=== PATIENT | female | born 1980 | race African-American/Black ===

== ENCOUNTER 2016-12-17 18:14 | Emergency (ER) | payer SELFPAY ==
[~2016-12-17 18:14] MED LIST: METH4TAB2 PO; PROM25TA10 PO; SUMA50TA3 PO
[2016-12-17] MEDS ORDERED: LISINOPRIL 10 MG TABLET PO ONE (19:00)
[2016-12-17] MEDS ORDERED: amLODIPine BESYLATE 5 MG TABLET PO ONE (19:00)
[2016-12-17] MEDS ORDERED: hydroCHLOROthiazide 12.5 MG CAPSULE PO ONE (19:00)
[2016-12-17] MEDS ORDERED: CETIRIZINE HCL 10 MG TABLET. PO STA (19:01)
--- NOTE | 2016-12-17 19:01 | PHYS DOC ---
Past Medical History Past Medical History: Anxiety, High Cholesterol, Hypertension, Migraines Past Surgical History: , Tubal ligation Alcohol Use: None Drug Use: None Adult General Chief Complaint Chief Complaint: SKIN RASH/ABSCESS HPI HPI Patient is a 36 year old female with a history of high cholesterol, hypertension, anxiety who presents today with a pruritic rash on her neck that began yesterday. Patient denies any known cause for the rash. Review of Systems Review of Systems Constitutional: Denies fever or chills [] Eyes: Denies change in visual acuity, redness, or eye pain [] HENT: Denies nasal congestion or sore throat [] Respiratory: Denies cough or shortness of breath [] Cardiovascular: No additional information not addressed in HPI [] GI: Denies abdominal pain, nausea, vomiting, bloody stools or diarrhea [] : Denies dysuria or hematuria [] Musculoskeletal: Denies back pain or joint pain [] Integument: rash Neurologic: Denies headache, focal weakness or sensory changes [] Endocrine: Denies polyuria or polydipsia [] Current Medications Current Medications Current Medications Medications (Trade) Dose Ordered Sig/Loretta Start Time Stop Time Status Last Admin Dose Admin Amlodipine Besylate (Norvasc) 10 mg 1X ONCE 12/17/16 19:00 12/17/16 19:01 DC Cetirizine HCl (ZyrTEC) 10 mg 1X STAT 12/17/16 19:01 12/17/16 19:02 DC Famotidine (Pepcid) 20 mg 1X ONCE 12/17/16 19:15 12/17/16 19:16 Hydrochlorothiazide (Microzide) 25 mg 1X ONCE 12/17/16 19:00 12/17/16 19:01 DC Lisinopril (Prinivil) 40 mg 1X ONCE 12/17/16 19:00 12/17/16 19:01 DC Prednisone (Prednisone) 60 mg 1X ONCE 12/17/16 19:15 12/17/16 19:16 Allergies Allergies Allergies Coded Allergies Type Severity Reaction Last Updated Verified Penicillins Allergy Intermediate 12/06/13 No Physical Exam Physical Exam Constitutional: Well developed, well nourished, no acute distress, non-toxic appearance. [] HENT: Normocephalic, atraumatic, bilateral external ears normal, oropharynx moist, no oral exudates, nose normal. [] Eyes: PERRLA, EOMI, conjunctiva normal, no discharge. [] Neck: Normal range of motion, no tenderness, supple, no stridor. [] Cardiovascular:Heart rate regular rhythm, no murmur [] Lungs & Thorax: Bilateral breath sounds clear to auscultation [] Abdomen: Bowel sounds normal, soft, no tenderness, no masses, no pulsatile masses. [] Skin: Patient has mild amount of erythematous papular rash on her neck. Back: No tenderness, no CVA tenderness. [] Extremities: No tenderness, no cyanosis, no clubbing, ROM intact, no edema. [] Neurologic: Alert and oriented X 3, normal motor function, normal sensory function, no focal deficits noted. [] Psychologic: Affect normal, judgement normal, mood normal. [] Current Patient Data Vital Signs Vital Signs Date Time Temp Pulse Resp B/P (MAP) Pulse Ox O2 Delivery O2 Flow Rate FiO2 12/17/16 18:27 98.5 60 18 100 Room Air 98.5 EKG EKG [] Radiology/Procedures Radiology/Procedures [] Course & Med Decision Making Course & Med Decision Making Pertinent Labs and Imaging studies reviewed. (See chart for details) Patient has contact dermatitis rash on her neck from unknown cause. She was given prednisone, famotidine and Zyrtec and discharged with the same. Her blood pressure was 241/112 with a heart rate of 60, she states she forgot to take her blood pressure medicine this morning which includes Norvasc, lisinopril, HCTZ. She was given today's dose of her blood pressure medicine. BP will be rechecked prior to recheck. She was discharged with instructions to monitor her BP at home if still elevated to come to the ED if symptomatic otherwise follow-up with her PCP. Catherine Disclaimer Catherine Disclaimer This electronic medical record was generated, in whole or in part, using a voice recognition dictation system. Departure Departure Impression: Primary Impression: Contact dermatitis Additional Impression: Accelerated hypertension Disposition: 01 HOME, SELF-CARE Condition: STABLE Referrals: NO PCP (PCP) Follow-up with your doctor in 1-2 weeks Patient Instructions: Contact Dermatitis, [id number], Hypertension Additional Instructions: You were seen for contact dermatitis rash and hypertension. Take the prescribed medicine as ordered. Follow-up with your doctor in the course of next week. Your blood pressure was elevated at 241/112, try and take your blood pressure medicine as prescribed by your doctor. Scripts Cetirizine Hcl (ZYRTEC) 10 Mg Tablet 1 TAB PO DAILY, #30 TAB 2 Refills Prov: JASWINDER LUECRO APRN 12/17/16 Famotidine (FAMOTIDINE) 20 Mg Tablet 20 MG PO DAILY, #14 TAB Prov: JASWINDER LUCERO APRN 12/17/16 Prednisone (PREDNISONE) 10 Mg Tablet 10 MG PO UD for PREDNISONE TAPER, #39 TAB 0 Refills Take 3 tablets by mouth twice a day for 3 days, then take 2 tablets by mouth twice a day for 3 days, then take 1 tablet by mouth twice a day for 3 days, then take 1 tablet by mouth daily x 3 days, then stop. Prov: JASWINDER LUCERO APRN 12/17/16 Problem Qualifiers Primary Impression: Contact dermatitis Contact dermatitis type: unspecified Contact dermatitis trigger: unspecified trigger Qualified Codes: L25.9 - Unspecified contact dermatitis, unspecified cause JASWINDER LUCERO APRN Dec 17, 2016 19:01
[2016-12-17] MEDS ORDERED: CETI10TA22 PO (19:09)
[2016-12-17] MEDS ORDERED: PRED-220 PO (19:09)
[2016-12-17] MEDS ORDERED: FAMO20TA5 PO (19:09)
[2016-12-17] MEDS ORDERED: predniSONE 20 MG TABLET PO ONE (19:15)
[2016-12-17] MEDS ORDERED: FAMOTIDINE 20 MG TABLET. PO ONE (19:15)
[2016-12-17 19:16] VITALS: BP 237/117
== END 2016-12-17 19:25 | disposition home or self-care (01) ==
LOC: ER 18:14
DX: L25.9 Unspecified contact dermatitis, unspecified cause (principal); I10 Essential (primary) hypertension; F41.9 Anxiety disorder, unspecified; E78.00 Pure hypercholesterolemia, unspecified; G43.909 Migraine, unspecified, not intractable, without status migrainosus; Z88.0 Allergy status to penicillin
CPT/HCPCS: 99284; J7512

== ENCOUNTER 2017-01-16 19:20 | Emergency (ER) | payer OTHER ==
[~2017-01-16 19:20] MED LIST changes: +CETI10TA22 PO; +FAMO20TA5 PO; +PRED-220 PO
--- NOTE | 2017-01-16 19:53 | PHYS DOC ---
Past Medical History Past Medical History: Anxiety, High Cholesterol, Hypertension, Migraines Past Surgical History: , Tubal ligation Alcohol Use: None Drug Use: None Adult General Chief Complaint Chief Complaint: LOWER BACK PAIN OR INJURY HPI HPI Patient is a 36 year old -[place] female who presents with. 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 He states over the last 2-3 days and has intensified and last night she took Advil and really didn't help that much. She denies any numbness or weakness in her legs or urinary incontinence. She denies any trauma to her back, or dysuria. She states her pain is made worse when she twists and turns and she points across her entire lumbar area from side to side is where her pain is. Review of Systems Review of Systems Constitutional: Denies fever or chills [] Eyes: Denies change in visual acuity, redness, or eye pain [] HENT: Denies nasal congestion or sore throat [] Respiratory: Denies cough or shortness of breath [] Cardiovascular: No additional information not addressed in HPI [] GI: Denies abdominal pain, nausea, vomiting, bloody stools or diarrhea [] : Denies dysuria or hematuria [] Musculoskeletal: Denies joint pain, positive for back pain[] Integument: Denies rash or skin lesions [] Neurologic: Denies headache, focal weakness or sensory changes [] Endocrine: Denies polyuria or polydipsia [] Allergies Allergies Allergies Coded Allergies Type Severity Reaction Last Updated Verified Penicillins Allergy Intermediate 12/06/13 No Physical Exam Physical Exam Constitutional: Well developed, well nourished, no acute distress, non-toxic appearance. [] HENT: Normocephalic, atraumatic, bilateral external ears normal, oropharynx moist, no oral exudates, nose normal. [] Eyes: PERRLA, EOMI, conjunctiva normal, no discharge. [] Neck: Normal range of motion, no tenderness, supple, no stridor. [] Cardiovascular:Heart rate regular rhythm, no murmur [] Lungs & Thorax: Bilateral breath sounds clear to auscultation [] Abdomen: Bowel sounds normal, soft, no tenderness, no masses, no pulsatile masses. [] Skin: Warm, dry, no erythema, no rash. [] Back: No step-offs noted midline, mild tenderness palpation diffusely through the entire lumbar back area from side to side, no CVA tenderness. [] Extremities: No tenderness, no cyanosis, no clubbing, ROM intact, no edema. [] Neurologic: Alert and oriented X 3, normal motor function, normal sensory function, no focal deficits noted. [] Psychologic: Affect normal, judgement normal, mood normal. [] EKG EKG [] Radiology/Procedures Radiology/Procedures [] Impressions: Muscle skeletal back pain Course & Med Decision Making Course & Med Decision Making Pertinent Labs and Imaging studies reviewed. (See chart for details) I suspect her discomfort from overuse, we'll encourage 400 mg Advil every 8 hours for the next 3-5 days she can take Flexeril as needed for muscle aches. She is encouraged to rest, use ice or heat on her back. She is instructed to the flexural can make her sleepy and not to drive or taking it. Dragon Disclaimer Dragon Disclaimer This electronic medical record was generated, in whole or in part, using a voice recognition dictation system. Departure Departure Impression: Primary Impression: Back pain Condition: STABLE Referrals: NO PCP (PCP) Patient Instructions: Muscle Strain Additional Instructions: You likely have pain since her overusing her back. You should rest for the next few days. He can use Advil 400 mg every 8 hours for next 3-5 days. Please don't take it longer than this at this high dose. He also take Flexeril which is a muscle relaxant. You take 10 mg every 8 hours. If it makes you sleepy don't take it except one tablet before you go to bed. Please don't drive or taking this medicine as it can impair judgment and make you sleepy. If you develop high fevers, urinary incontinence, weakness or numbness in her legs, or other concerns please return back to emergency department. You will need to follow-up with primary care physician within the next 3-5 days. Scripts Cyclobenzaprine Hcl (CYCLOBENZAPRINE HCL) 10 Mg Tablet 1 TAB PO TID, #30 TAB Prov: ENMANUEL ZAVALA MD 01/16/17 Problem Qualifiers Primary Impression: Back pain Back pain location: low back pain Chronicity: acute Back pain laterality: bilateral Sciatica presence: without sciatica Qualified Codes: M54.5 - Low back pain ENMANUEL ZAVALA MD Jan 16, 2017 19:53
[2017-01-16 19:58] VITALS: BP 146/97
[2017-01-16] MEDS ORDERED: CYCL10TA2 PO (20:09)
== END 2017-01-16 20:24 | disposition home or self-care (01) ==
LOC: ER 20:10
DX: M54.5 Low back pain (principal); I10 Essential (primary) hypertension; E78.00 Pure hypercholesterolemia, unspecified; G43.909 Migraine, unspecified, not intractable, without status migrainosus; Z98.890 Other specified postprocedural states; Z98.51 Tubal ligation status; Z88.0 Allergy status to penicillin
CPT/HCPCS: 99283

== ENCOUNTER 2017-03-29 18:29 | Emergency (ER) | payer OTHER ==
[~2017-03-29] VITALS: Ht 167.6 cm; Wt 104.3 kg
[~2017-03-29 18:29] MED LIST changes: +CYCL10TA2 PO
--- NOTE | 2017-03-29 19:24 | PHYS DOC ---
Past Medical History Past Medical History: Anxiety, High Cholesterol, Hypertension, Migraines Past Surgical History: , Tubal ligation Additional Information: 0.5 PPD Alcohol Use: None Drug Use: None Adult General Chief Complaint Chief Complaint: CHEST PAIN HPI HPI Patient is a 36 year old female who presents with several hour history of cough palpitations and mild shortness of breath and mild headache. Has not taken her blood pressure meds in over 2 weeks due to social stressors. She reports history of hypertension and anxiety but denies diabetes. Family history coronary artery disease. Reports normal urinary output. The pressure noted to be 207/110. Primary care physician is with [facility] Review of Systems Review of Systems Constitutional: Denies fever or chills [] Eyes: Denies change in visual acuity, redness, or eye pain [] HENT: Denies nasal congestion or sore throat [] Respiratory: Denies cough or shortness of breath [] Cardiovascular: No additional information not addressed in HPI [] GI: Denies abdominal pain, nausea, vomiting, bloody stools or diarrhea [] : Denies dysuria or hematuria [] Musculoskeletal: Denies back pain or joint pain [] Integument: Denies rash or skin lesions [] Neurologic: Denies headache, focal weakness or sensory changes [] Endocrine: Denies polyuria or polydipsia [] All other systems were reviewed and found to be within normal limits, except as documented in this note. Current Medications Current Medications Current Medications Medications (Trade) Dose Ordered Sig/Loretta Start Time Stop Time Status Last Admin Dose Admin Labetalol HCl (Normodyne) 20 mg 1X ONCE 03/29/17 20:45 03/29/17 20:46 DC 03/29/17 20:39 20 MG Allergies Allergies Allergies Coded Allergies Type Severity Reaction Last Updated Verified Penicillins Allergy Intermediate 12/06/13 No Physical Exam Physical Exam Constitutional: Well developed, well nourished, no acute distress, non-toxic appearance. [] HENT: Normocephalic, atraumatic, bilateral external ears normal, oropharynx moist, no oral exudates, nose normal. [] Eyes: PERRLA, EOMI, conjunctiva normal, no discharge. [] Neck: Normal range of motion, no tenderness, supple, no stridor. [] Cardiovascular:Heart rate regular rhythm, no murmur [] Lungs & Thorax: Bilateral breath sounds clear to auscultation [] Abdomen: Bowel sounds normal, soft, no tenderness, no masses, no pulsatile masses. [] Skin: Warm, dry, no erythema, no rash. [] Back: No tenderness, no CVA tenderness. [] Extremities: No tenderness, no cyanosis, no clubbing, ROM intact, no edema. [] Neurologic: Alert and oriented X 3, normal motor function, normal sensory function, no focal deficits noted. [] Psychologic: Affect normal, judgement normal, mood normal. [] Current Patient Data Vital Signs Vital Signs Date Time Temp Pulse Resp B/P (MAP) Pulse Ox O2 Delivery O2 Flow Rate FiO2 03/29/17 20:39 63 179/86 03/29/17 20:16 98 Room Air 03/29/17 18:47 98.0 18 98.0 Lab Values Laboratory Tests Test 03/29/17 18:50 White Blood Count 11.8 x10^3/uL (4.0-11.0) H Red Blood Count 4.45 x10^6/uL (3.50-5.40) Hemoglobin 12.4 g/dL (12.0-15.5) Hematocrit 37.4 % (36.0-47.0) Mean Corpuscular Volume 84 fL (79-100) Mean Corpuscular Hemoglobin 28 pg (25-35) Mean Corpuscular Hemoglobin Concent 33 g/dL (31-37) Red Cell Distribution Width 14.3 % (11.5-14.5) Platelet Count 439 x10^3/uL (140-400) H Neutrophils (%) (Auto) 56 % (31-73) Lymphocytes (%) (Auto) 34 % (24-48) Monocytes (%) (Auto) 6 % (0-9) Eosinophils (%) (Auto) 4 % (0-3) H Basophils (%) (Auto) 0 % (0-3) Neutrophils # (Auto) 6.6 x10^3uL (1.8-7.7) Lymphocytes # (Auto) 4.0 x10^3/uL (1.0-4.8) Monocytes # (Auto) 0.7 x10^3/uL (0.0-1.1) Eosinophils # (Auto) 0.5 x10^3/uL (0.0-0.7) Basophils # (Auto) 0.0 x10^3/uL (0.0-0.2) D-Dimer (Tawnya) 0.27 ug/mlFEU (0.00-0.50) Sodium Level 139 mmol/L (136-145) Potassium Level 3.5 mmol/L (3.5-5.1) Chloride Level 103 mmol/L (98-107) Carbon Dioxide Level 27 mmol/L (21-32) Anion Gap 9 (6-14) Blood Urea Nitrogen 14 mg/dL (7-20) Creatinine 1.1 mg/dL (0.6-1.0) H Estimated GFR (Cockcroft-Gault) 68.0 BUN/Creatinine Ratio 13 (6-20) Glucose Level 99 mg/dL (70-99) Calcium Level 9.4 mg/dL (8.5-10.1) Total Bilirubin 0.4 mg/dL (0.2-1.0) Aspartate Amino Transferase (AST) 22 U/L (15-37) Alanine Aminotransferase (ALT) 18 U/L (14-59) Alkaline Phosphatase 102 U/L (46-116) Troponin I Quantitative < 0.017 ng/mL (0.000-0.055) Total Protein 8.8 g/dL (6.4-8.2) H Albumin 3.6 g/dL (3.4-5.0) Albumin/Globulin Ratio 0.7 (1.0-1.7) L Laboratory Tests 03/29/17 18:50 Laboratory Tests 03/29/17 18:50 EKG EKG eKG normal sinus rhythm rate of 73 no STEMI QTC 429 my interpretation[] Radiology/Procedures Radiology/Procedures Chest x-ray[ no acute cardiopulmonary process seen my interpretation and review of the images] Course & Med Decision Making Course & Med Decision Making Pertinent Labs and Imaging studies reviewed. (See chart for details) [To check labs including troponin and d-dimer EKG and chest x-ray and reexam] Labs EKG chest x-ray d-dimer troponin were unremarkable patient stable for dismissal and outpatient treatment. Re-Examination was unremarkable. Blood pressure on reexamination 150/90 Dragon Disclaimer Dragon Disclaimer This electronic medical record was generated, in whole or in part, using a voice recognition dictation system. Departure Departure Impression: Primary Impression: Dyspnea Additional Impressions: Hypertensive urgency Palpitations Disposition: HOME, SELF-CARE Condition: IMPROVED Referrals: NO PCP (PCP) Problem Qualifiers JOVANNA NICHOLS MD Mar 29, 2017 19:24
[2017-03-29 19:28] LABS: BASO % 0 % (0-3); EOS % 4 % (0-3); HEMATOCRIT 37.4 % (36.0-47.0); HEMOGLOBIN 12.4 g/dL (12.0-15.5); LYMPH % 34 % (24-48); MEAN CORPUSCULAR HEMOGLOBIN 28 pg (25-35); MEAN CORPUSCULAR HGB CONC 33 g/dL (31-37); MEAN CORPUSCULAR VOLUME 84 fL (79-100); MONO % 6 % (0-9); NEUT % 56 % (31-73); PLATELET COUNT 439 x10^3/uL (140-400); RED BLOOD COUNT 4.45 x10^6/uL (3.50-5.40); RED CELL DISTRIBUTION WIDTH 14.3 % (11.5-14.5); WHITE BLOOD COUNT 11.8 x10^3/uL (4.0-11.0)
[2017-03-29 19:51] LABS: CALCIUM 9.4 mg/dL (8.5-10.1); CREATININE 1.1 mg/dL (0.6-1.0); POTASSIUM 3.5 mmol/L (3.5-5.1)
[2017-03-29 19:58] LABS: ALBUMIN 3.6 g/dL (3.4-5.0); ALBUMIN/GLOBULIN RATIO 0.7 (1.0-1.7); TOTAL BILIRUBIN 0.4 mg/dL (0.2-1.0); TOTAL PROTEIN 8.8 g/dL (6.4-8.2)
[2017-03-29] MEDS ORDERED: LABETALOL 20 MG/4 ML DISP.SYRIN. IVP ONE (20:45)
[2017-03-29 21:16] VITALS: BP 155/75
--- NOTE | 2017-03-30 07:54 | RAD ---
Portable chest, 03/29/2017: History: Cough Comparison is made to a study from 02/28/2013. The left ventricle is mildly prominent. The pulmonary vascularity is normal. No pulmonary infiltrates are seen. There is no evidence of pleural fluid. IMPRESSION: No acute cardiopulmonary abnormality is detected.
--- NOTE | 2017-03-30 11:56 | EKG ---
[facility] [address] [place] [address] Test Date: 2017-03-29 Test Time: 18:35:37 Pat Name: JENNIFER LATIF Department: Room: Gender: F Typing Section Chief: : 1980 Requested By: JOVANNA NICHOLS Order Number: [id number] Reading MD: Glen Presley Measurements Intervals [place] Rate: 73 P: 53 NV: 158 QRS: 37 QRSD: 94 T: 20 QT: 400 QTc: 444 Interpretive Statements SINUS RHYTHM POSSIBLE LEFT ATRIAL ABNORMALITY NONSPECIFIC ST-T WAVE CHANGES. POSSIBLY ABNORMAL ECG RI6.01 Compared to ECG 02/28/2013 06:02:33 No significant changes Electronically Signed On 03-30-2017 16:01:50 CERTIFIED SUBSTANCE ABUSE COUNSELOR by Glen Presley
--- NOTE | 2017-03-30 12:22 | EKG ---
[facility] [address] [place] [address] Test Date: 2017-03-29 Test Time: 18:36:50 Pat Name: JENNIFER LATIF Department: Room: Gender: F Wildlife Veterinarian: : 1980 Requested By: JOVANNA NICHOLS Order Number: [id number] Reading MD: Glen Presley Measurements Intervals [place] Rate: 73 P: 49 [place]: 156 QRS: 22 QRSD: 92 T: 16 QT: 386 QTc: 429 Interpretive Statements SINUS RHYTHM QRS(T) CONTOUR ABNORMALITY NONSPECIFIC ST-T WAVE CHANGES. POSSIBLY ABNORMAL ECG RI6.01 Compared to ECG 02/28/2013 06:02:33 Atrial abnormality no longer present Electronically Signed On 03-30-2017 16:02:06 MERRY GO ROUND OPERATOR by Glen Presley
== END 2017-03-29 21:18 | disposition home or self-care (01) ==
LOC: ER 18:29
DX: R06.00 Dyspnea, unspecified (principal); I16.0 Hypertensive urgency; R00.2 Palpitations; E78.00 Pure hypercholesterolemia, unspecified; G43.909 Migraine, unspecified, not intractable, without status migrainosus; F17.200 Nicotine dependence, unspecified, uncomplicated; Z98.51 Tubal ligation status; Z98.890 Other specified postprocedural states; Z88.0 Allergy status to penicillin
CPT/HCPCS: 36415; 71010; 80053; 84484; 85025; 85379; 93005; 96374; 99285; J3490

== ENCOUNTER 2017-10-28 00:40 | Emergency (ER) | payer SELFPAY, OTHER | END 2017-10-28 01:10 | disposition left against medical advice (07) | LOC: ER 01:10 | DX: F41.9 Anxiety disorder, unspecified (principal); R51 Headache; Z53.21 Procedure and treatment not carried out due to patient leaving prior to being seen by health care provider ==

== ENCOUNTER 2018-05-11 11:33 | Emergency (ER) | payer SELFPAY ==
[~2018-05-11] VITALS: Ht 167.6 cm; Wt 104.3 kg
[2018-05-11 11:49] VITALS: BP 198/110
--- NOTE | 2018-05-11 12:25 | PHYS DOC ---
Past Medical History Past Medical History: Anxiety, High Cholesterol, Hypertension, Migraines Past Surgical History: , Tubal ligation Alcohol Use: None Drug Use: None Adult General Chief Complaint Chief Complaint: COUGH HPI HPI 37-year-old female presents to ER with complaints of flulike symptoms which started 2 days ago. Patient reports her kids were diagnosed with the flu today and they have similar symptoms as hers. Patient also has complaints of N/V/D with 3-4 episodes of V and multiple D episodes. Patient states she took TheraFlu last night denies any xquw-esr-gghhymt medications today. Patient's LMP was last week. Patient reports she's had generalized body aches and fatigue denies lethargy, urinary symptoms, chest pain, or abdominal pain. Patient is a daily smoker. Review of Systems Review of Systems Constitutional: No chills and generalized body aches/fatigue Eyes: Denies change in visual acuity, redness, or eye pain [] HENT: Denies nasal congestion or sore throat [] Respiratory: Denies shortness of breath. Reports productive cough Cardiovascular: No additional information not addressed in HPI [] GI: Reports nausea, vomiting, or diarrhea [] : Denies dysuria or hematuria [] Musculoskeletal: Reports body aches denies swelling Integument: Denies rash or skin lesions [] Neurologic: Denies headache, focal weakness or sensory changes [] All other systems were reviewed and found to be within normal limits, except as documented in this note. Current Medications Current Medications Current Medications Medications (Trade) Dose Ordered Sig/Loretta Start Time Stop Time Status Last Admin Dose Admin Acetaminophen (Tylenol) 1,000 mg 1X ONCE 05/11/18 12:30 05/11/18 12:31 DC 05/11/18 12:42 1,000 MG Albuterol/ Ipratropium (Duoneb) 3 ml 1X ONCE 05/11/18 12:30 05/11/18 12:31 DC 05/11/18 12:52 3 ML Ondansetron HCl (Zofran Odt) 4 mg 1X ONCE 05/11/18 12:30 05/11/18 12:31 DC 05/11/18 12:41 4 MG Prednisone (Prednisone) 50 mg 1X ONCE 05/11/18 12:30 05/11/18 12:31 DC 05/11/18 12:42 50 MG Allergies Allergies Allergies Coded Allergies Type Severity Reaction Last Updated Verified Penicillins Allergy Intermediate 12/06/13 No Physical Exam Physical Exam Constitutional: Well developed, well nourished, no acute distress, non-toxic appearance. Fatigued appearance. Steady gait HENT: Normocephalic, atraumatic, , oropharynx moist, no oral exudates, nose normal. [] Eyes: Pupils equal, conjunctiva normal, no discharge. [] Neck: Normal range of motion, no tenderness, supple, no stridor. [] Cardiovascular: Heart rate regular rhythm, no murmur [] Lungs & Thorax: Abdomen: Bowel sounds normal, soft, no tenderness, no masses, no pulsatile masses. [] Skin: Warm, dry, no erythema, no rash. [] Back: No tenderness, no CVA tenderness. [] Extremities: No tenderness, no cyanosis, no clubbing, ROM intact, no edema. [] Neurologic: Alert and oriented X 3, normal motor function, normal sensory function, no focal deficits noted. [] Psychologic: Affect normal, judgement normal, mood normal. [] Current Patient Data Vital Signs Vital Signs Date Time Temp Pulse Resp B/P (MAP) Pulse Ox O2 Delivery O2 Flow Rate FiO2 05/11/18 12:53 Room Air 05/11/18 11:49 99.8 79 18 198/110 (139) 97 99.8 Lab Values Laboratory Tests Test 05/11/18 12:14 Influenza Type A Antigen Negative (NEGATIVE) Influenza Type B Antigen Negative (NEGATIVE) EKG EKG [] Radiology/Procedures Radiology/Procedures [] Course & Med Decision Making Course & Med Decision Making Pertinent Labs and Imaging studies reviewed. (See chart for details) 1425: There was a delay in getting the chest x-ray results Aliyah with radiology called stating she had spoke with Dr. Justice radiologist and his report is chest x-ray with no acute findings. She reports her symptoms have improved following DuoNeb treatments and dose of medication while in the ER. Discussed with negative flu and chest x-ray plans were for home discharge with information on viral symptoms. Patient has been drinking water after dose of Zofran ODT denying any nausea or having any vomiting episodes while in the ER. Will provide patient with prescription for prednisone, albuterol inhaler, and a Rx for Doxycycline which she will wait for 48 hrs to see if symptoms worsen- as she is a smoker. Looking cessation was discussed. Patient encouraged to increase fluid intake. If symptoms persist or with concerns patient to follow- up with primary care physician. Discharge instructions discussed and education provided on signs and symptoms to return to ER. She remains nontoxic in appearance and in no visible distress at time of discharge discussion. Dragon Disclaimer Dragon Disclaimer This electronic medical record was generated, in whole or in part, using a voice recognition dictation system. Departure Departure Impression: Primary Impression: Cough Additional Impressions: Flu-like symptoms Viral syndrome Disposition: HOME, SELF-CARE Condition: STABLE Referrals: NO PCP (PCP) Patient Instructions: Cough, Adult, Smoking Cessation, Viral Syndrome Additional Instructions: As discussed drink plenty of fluids. Avoid smoking. If symptoms persist follow-up with primary care physician in 5-7 days for reevaluation sooner with any concerns. You are being provided with a prescription for doxycycline which is an antibiotic if symptoms worsen in the next 48 hours start the prescription. If symptoms improve you will not need to start this. Scripts Doxycycline Hyclate (DOXYCYCLINE HYCLATE) 100 Mg Tablet 1 TAB PO BID, #14 TAB 0 Refills Prov: BLAISE TAYLOR APRN 05/11/18 Albuterol Sulfate (Proair Hfa) 8.5 Gm Hfa.aer.ad 1 PUFF INH PRN Q6HRS PRN for COUGH, #1 INHALER 0 Refills Prov: BLAISE TAYLOR APRN 05/11/18 Prednisone (PREDNISONE) 50 Mg Tablet 50 MG PO DAILY, #4 TAB 0 Refills Start on 05/12/18 Prov: BLAISE TAYLOR APRN 05/11/18 Problem Qualifiers BLAISE TAYLOR APRN May 11, 2018 12:25
[2018-05-11] MEDS ORDERED: IPRATRPIUM/ALBUTEROL 0.5/2.5MG 3 ML NEBU. NEB ONE (12:30)
[2018-05-11] MEDS ORDERED: predniSONE 10 MG TABLET PO ONE (12:30)
[2018-05-11] MEDS ORDERED: ONDANSETRON ODT 4 MG TAB.RAPDIS. PO ONE (12:30)
[2018-05-11] MEDS ORDERED: ACETAMINOPHEN 500 MG TABLET PO ONE (12:30)
[2018-05-11 12:42] LABS: INFLUENZA A PATIENT NEGATIVE (NEGATIVE); INFLUENZA B PATIENT NEGATIVE (NEGATIVE)
[2018-05-11] MEDS ORDERED: DOXY100T PO (14:47)
[2018-05-11] MEDS ORDERED: PRED50TA PO (14:47)
[2018-05-11] MEDS ORDERED: ALBU2.5V8 INH (14:47)
--- NOTE | 2018-05-11 15:25 | RAD ---
Chest radiograph 05/11/2018 12:32 PM INDICATION: Cough COMPARISON: March 29, 2017 TECHNIQUE: Frontal and lateral views of the chest are provided. FINDINGS: The cardiomediastinal silhouette is within normal limits. There are no pleural effusions. There is no pulmonary vascular congestion. There is no pneumothorax. The lungs are clear. No significant osseous abnormality is identified. IMPRESSION: No acute cardiopulmonary process. Electronically signed by: Yesica Singleton MD (05/11/2018 1:36 PM) [id number]
== END 2018-05-11 15:08 | disposition home or self-care (01) ==
LOC: ER 11:33
DX: J11.1 Influenza due to unidentified influenza virus with other respiratory manifestations (principal); B34.9 Viral infection, unspecified; F41.9 Anxiety disorder, unspecified; E78.00 Pure hypercholesterolemia, unspecified; I10 Essential (primary) hypertension; G43.909 Migraine, unspecified, not intractable, without status migrainosus; Z88.0 Allergy status to penicillin
CPT/HCPCS: 71046; 87804; 94640; 99284; J7512; J7620; Q0162

== ENCOUNTER 2019-03-01 13:51 | Emergency (ER) | payer OTHER ==
[~2019-03-01] VITALS: Ht 167.6 cm; Wt 104.3 kg
[~2019-03-01 13:51] MED LIST changes: +ALBU2.5V8 INH; +DOXY100T PO; +PRED50TA PO
[2019-03-01 14:27] VITALS: BP 262/127
[2019-03-01] MEDS ORDERED: BUTALB/APAP/CAFEIN 50/325/40MG TABLET. PO PRN (15:00)
[2019-03-01] MEDS ORDERED: FLUC150T PO (15:17)
--- NOTE | 2019-03-01 15:23 | PHYS DOC ---
Past Medical History Past Medical History: Anxiety, High Cholesterol, Hypertension, Migraines Past Surgical History: , Tubal ligation Alcohol Use: None Drug Use: None Adult General Chief Complaint Chief Complaint: SKIN RASH/ABSCESS HPI HPI Patient is a 38 year old who presents to the ER for multiple complaints. The patient states she's been having a rash for 2 weeks in her pelvic area. Also states she's been having headache for several days. She states that she gets migraines and her pain is 9/10 and throbbing. Review of Systems Review of Systems Constitutional: Denies fever or chills [] Eyes: Denies change in visual acuity, redness, or eye pain [] HENT: Denies nasal congestion or sore throat [] Respiratory: Denies cough or shortness of breath [] Cardiovascular: No additional information not addressed in HPI [] GI: Denies abdominal pain, nausea, vomiting, bloody stools or diarrhea [] : Denies dysuria or hematuria [] Musculoskeletal: Denies back pain or joint pain [] Integument: Reports rash in pelvic area. Neurologic: Reports headache, Denies focal weakness or sensory changes [] Endocrine: Denies polyuria or polydipsia [] Complete systems were reviewed and found to be within normal limits, except as documented in this note. Current Medications Current Medications Current Medications Medications (Trade) Dose Ordered Sig/Loretta Start Time Stop Time Status Last Admin Dose Admin Acetaminophen/ Butalbital/ Caffeine (Fioricet) 1 tab PRN Q6HRS PRN 03/01/19 15:00 Allergies Allergies Allergies Coded Allergies Type Severity Reaction Last Updated Verified Penicillins Allergy Intermediate 12/06/13 No Physical Exam Physical Exam Constitutional: Well developed, well nourished, no acute distress, non-toxic appearance. [] HENT: Normocephalic, atraumatic, bilateral external ears normal, oropharynx moist, no oral exudates, nose normal. [] Eyes: PERRLA, EOMI, conjunctiva normal, no discharge. [] Neck: Normal range of motion, no tenderness, supple, no stridor. [] Skin: Warm, dry, no erythema, no rash. [] Back: No tenderness, no CVA tenderness. [] Extremities: No tenderness, no cyanosis, no clubbing, ROM intact, no edema. [] Neurologic: Alert and oriented X 3, normal motor function, normal sensory function, no focal deficits noted. [] Psychologic: Affect normal, judgement normal, mood normal. [] Pelvic: Superficial cut in left crease, Right crease has erythema. Current Patient Data Vital Signs Vital Signs Date Time Temp Pulse Resp B/P (MAP) Pulse Ox O2 Delivery O2 Flow Rate FiO2 03/01/19 14:27 98.4 61 16 262/127 (172) 96 Room Air 98.4 EKG EKG [] Radiology/Procedures Radiology/Procedures [] Course & Med Decision Making Course & Med Decision Making Pertinent Labs and Imaging studies reviewed. (See chart for details) Will give Fioricet and then will place on Fluconazole. Dragon Disclaimer Dragon Disclaimer This electronic medical record was generated, in whole or in part, using a voice recognition dictation system. Departure Departure Impression: Primary Impression: Yeast dermatitis Additional Impression: Headache Disposition: HOME, SELF-CARE Condition: STABLE Referrals: NO PCP (PCP) Patient Instructions: General Headache Without Cause, Yeast Infection of the Skin, [id number] Additional Instructions: Thank you for visiting [facility]. We appreciate you trusting us with your care. If any additional problems come up don't hesitate to return to visit us. Please follow up with your primary care provider so they can plan additional care if needed and know about the problem that you had. If symptoms worsen come back to the Emergency Department. Any concerning symptoms that start such as chest pain, shortness of air, weakness or numbness on one side of the body, running high fevers or any other concerning symptoms return to the ER. Please fill your medications at any pharmacy and follow the prescription instructions. You can also get over the counter antifungal cream for area. Scripts Fluconazole (DIFLUCAN) 150 Mg Tablet 1 TAB PO ONCE, #1 TAB Prov: SANJUANA GREENBERG APRN 03/01/19 Problem Qualifiers Additional Impression: Headache Headache type: unspecified Headache chronicity pattern: unspecified pattern SANJUANA GREENBERG APRN Mar 01, 2019 15:23
== END 2019-03-01 15:39 | disposition home or self-care (01) ==
LOC: ER 13:51
DX: B37.2 Candidiasis of skin and nail (principal); G43.909 Migraine, unspecified, not intractable, without status migrainosus; F41.9 Anxiety disorder, unspecified; E78.00 Pure hypercholesterolemia, unspecified; I10 Essential (primary) hypertension; Z98.890 Other specified postprocedural states; Z98.51 Tubal ligation status; Z88.0 Allergy status to penicillin
CPT/HCPCS: 99283

== ENCOUNTER → 2020-01-23 | Outpatient (CLI) | payer MEDICAID, OTHER ==
[~2020-01-23] MED LIST changes: -CETI10TA22 PO; +CETI10TA74 PO; +CONTRAST GIVEN. MC PRN; +FLUC150T PO; +IOHEXOL 350 MG/ML 100 ML VIAL. IV ONE
--- NOTE | 2020-01-23 11:10 | RAD ---
EXAM: CT angiogram Chest , Abdomen, and Pelvis with and without IV contrast INDICATION: Reason: ASCENDING AORTIC DILATION / Spl. Instructions: INJ 100ML OMNI 350 / History: TECHNIQUE: Multi-detector row CT images were acquired from the thoracic inlet through the ischial tuberosities with the use of IV contrast. Sagittal and coronal images were acquired from the transaxial data. All CT scans performed at this facility utilize dose optimization techniques as appropriate to the exam, including the following: Automated exposure control and adjustment of the mA and/or KV according to patient size (this includes techniques or standardized protocols for targeted exams where dose is indication/reason for exam). 3D VRT images obtained and reviewed. IV CONTRAST: Administered ORAL CONTRAST: Not administered COMPARISON: CT chest with IV contrast 09/09/2003. FINDINGS: CHEST: CARDIOVASCULAR: Ectasia of the ascending thoracic aorta to 4.0 x 3.8 cm (image 39 series 5) is noted. Accurate comparison of aortic size between the current and prior examination is difficult due to the greater amount of pulsation artifact present on the prior exam. No intramural hematoma on the precontrast images. No evidence of dissection. Two vessel aortic arch with common origin of the innominate and left common carotid arteries. Postcontrast images show satisfactory position of the pulmonary arteries to exclude central or large segmental pulmonary emboli. Normal heart size. No pericardial effusion. MEDIASTINUM & ARELY: Mild fullness of the right hilum is unchanged (comparing image 48 series 5 this exam with image 23 series 3 on the prior study). Calcified left hilar lymph nodes. LUNGS: Scattered areas of mosaic attenuation in the lower lobes, suggesting small airways disease. Otherwise no pulmonary infiltrate, noncalcified nodule, or other focal abnormality. PLEURAL SPACE: No pleural effusions or pneumothorax. OSSEOUS & SOFT TISSUE: Unremarkable ABDOMEN/PELVIS: LIVER: Unremarkable BILIARY SYSTEM: Gallbladder contains multiple calcified stones. Bile ducts are not dilated. PANCREAS: Unremarkable SPLEEN: Unremarkable ADRENALS: Unremarkable KIDNEYS & URETERS: Unremarkable BLADDER: Unremarkable REPRODUCTIVE ORGANS: Unremarkable GASTROINTESTINAL: The stomach, small bowel, and colon are unremarkable. The appendix is normal. MESENTERY/PERITONEUM/RETROPERITONEUM: Unremarkable VASCULAR: Unremarkable. No evidence of intramural hematoma, aneurysm or arterial dissection. LYMPH NODES: No adenopathy OSSEOUS & SOFT TISSUES: Unremarkable IMPRESSION: Stable borderline ectasia of the ascending thoracic aorta. Otherwise unremarkable CT angiogram of the chest, abdomen, and pelvis. No evidence of aortic dissection or flow limiting stenosis. Electronically signed by: Napoleon Sher MD (01/23/2020 11:07 AM) [id number]
== END | disposition home or self-care (01) ==
LOC: CT 08:43
PROVIDERS: ATTEND Internal Medicine Cardiovascular Disease
DX: I77.810 Thoracic aortic ectasia (principal); K80.20 Calculus of gallbladder without cholecystitis without obstruction
CPT/HCPCS: 71275; 74177; Q9967

== ENCOUNTER → 2020-01-23 | Outpatient (CLI) | payer MEDICAID, OTHER ==
[~2020-01-23] MED LIST changes: -CONTRAST GIVEN. MC PRN; -IOHEXOL 350 MG/ML 100 ML VIAL. IV ONE
[2020-01-23 12:45] LABS: CALCIUM 8.8 mg/dL (8.5-10.1); CREATININE 1.4 mg/dL (0.6-1.0); GFR 50.7; POTASSIUM 3.6 mmol/L (3.5-5.1)
[2020-01-23 12:46] LABS: CHOLESTEROL/HDL RATIO 5.9
== END | disposition home or self-care (01) ==
LOC: LAB 09:35
PROVIDERS: ATTEND Internal Medicine Cardiovascular Disease
DX: I10 Essential (primary) hypertension (principal)
CPT/HCPCS: 80048; 80061; 83721

== ENCOUNTER 2020-09-26 21:58 | Emergency (ER) | payer MEDICAID ==
[~2020-09-26] VITALS: Ht 167.6 cm; Wt 104.6 kg
--- NOTE | 2020-09-26 22:42 | ED.ADGEN ---
Past Medical History Past Medical History: Anxiety, High Cholesterol, Hypertension, Migraines, Other Additional Past Medical Histor: ANEURYSM Past Surgical History: , Tubal ligation Additional Past Surgical Histo: X3 Smoking Status: Current Every Day Smoker Alcohol Use: Rarely Drug Use: None General Adult EDM: Chief Complaint: CHEST PAIN HPI: HPI: Patient is a 40 year old female coming in by private vehicle for left-sided chest pain. Patient states 30 minutes prior she was sitting with her children eating when she experienced a sharp pain in her left upper chest radiating to the back. Patient states the pain was 9 out of 10 at onset and is 2-3 out of 10 now. Does not change with movement. Patient says pain has not changed in position. Denies any weakness, numbness or tingling in her arms or legs. No lower leg swelling. Patient has a history of in aortic aneurysm but is unsure if it is thoracic or abdominal. Was diagnosed about 1 year ago and has been compliant with her blood pressure medications. Review of Systems: Review of Systems: All other systems within normal limits except for as noted in the HPI Current Medications: Current Medications Medications (Trade) Dose Ordered Sig/Loretta Start Time Stop Time Status Last Admin Dose Admin Info (CONTRAST GIVEN -- Rx MONITORING) 1 each PRN DAILY PRN 09/26/20 23:15 09/28/20 23:14 Iohexol (Omnipaque 350 Mg/ml) 80 ml 1X ONCE 09/26/20 23:15 09/26/20 23:16 DC 09/26/20 00:02 80 ML Potassium Chloride (Klor-Con) 40 meq 1X ONCE 09/27/20 00:15 09/27/20 00:16 DC 09/27/20 01:05 40 MEQ Allergies: Allergies: Allergies Coded Allergies Type Severity Reaction Last Updated Verified Penicillins Allergy Intermediate 12/06/13 No Physical Exam: PE: Constitutional: Well developed, well nourished, no acute distress, non-toxic appearance. [] HENT: Normocephalic, atraumatic, bilateral external ears normal, nose normal. [] Eyes: PERRLA, conjunctiva normal, no discharge. [] Neck: No rigidity, supple, no stridor. [] Cardiovascular: Regular rate and rhythm, brisk cap refill, symmetric pulses [] Lungs & Thorax: Non labored symmetric respirations, no tachypnea or respiratory distress [] Abdomen: Soft, nondistended. Skin: Warm, dry, no erythema, no rash. [] Back: Unremarkable Extremities: No deformities, range of motion grossly intact, no lower extremity edema [] Neurologic: Alert and oriented X 3, no focal deficits noted. [] Psychologic: Affect normal, judgement normal, mood normal. [] Current Patient Data: Labs: Laboratory Tests Test 09/26/20 22:04 09/26/20 23:38 09/26/20 23:43 09/27/20 01:10 White Blood Count 13.5 x10^3/uL (4.0-11.0) H Red Blood Count 4.17 x10^6/uL (3.50-5.40) Hemoglobin 12.6 g/dL (12.0-15.5) Hematocrit 36.9 % (36.0-47.0) Mean Corpuscular Volume 89 fL (79-100) Mean Corpuscular Hemoglobin 30 pg (25-35) Mean Corpuscular Hemoglobin Concent 34 g/dL (31-37) Red Cell Distribution Width 15.2 % (11.5-14.5) H Platelet Count 483 x10^3/uL (140-400) H Neutrophils (%) (Auto) 59 % (31-73) Lymphocytes (%) (Auto) 30 % (24-48) Monocytes (%) (Auto) 7 % (0-9) Eosinophils (%) (Auto) 3 % (0-3) Basophils (%) (Auto) 0 % (0-3) Neutrophils # (Auto) 8.0 x10^3/uL (1.8-7.7) H Lymphocytes # (Auto) 4.1 x10^3/uL (1.0-4.8) Monocytes # (Auto) 1.0 x10^3/uL (0.0-1.1) Eosinophils # (Auto) 0.4 x10^3/uL (0.0-0.7) Basophils # (Auto) 0.1 x10^3/uL (0.0-0.2) D-Dimer (Tawnya) < 0.27 ug/mlFEU Sodium Level 141 mmol/L (136-145) Potassium Level 3.0 mmol/L (3.5-5.1) L Chloride Level 103 mmol/L (98-107) Carbon Dioxide Level 25 mmol/L (21-32) Anion Gap 13 (6-14) Blood Urea Nitrogen 18 mg/dL (7-20) Creatinine 1.4 mg/dL (0.6-1.0) H Estimated GFR (Cockcroft-Gault) 50.4 BUN/Creatinine Ratio 13 (6-20) Glucose Level 91 mg/dL (70-99) Calcium Level 8.9 mg/dL (8.5-10.1) Magnesium Level 1.8 mg/dL (1.8-2.4) Total Bilirubin 0.3 mg/dL (0.2-1.0) Aspartate Amino Transferase (AST) 46 U/L (15-37) H Alanine Aminotransferase (ALT) 59 U/L (14-59) Alkaline Phosphatase 95 U/L (46-116) Troponin I Quantitative < 0.017 ng/mL (0.000-0.055) < 0.017 ng/mL (0.000-0.055) IB-Crd-P-Type Natriuretic Peptide 20 pg/mL (0-124) Total Protein 8.7 g/dL (6.4-8.2) H Albumin 4.2 g/dL (3.4-5.0) Albumin/Globulin Ratio 0.9 (1.0-1.7) L Urine Collection Type Unknown Urine Color Yellow Urine Clarity Cloudy Urine pH 5.5 (<5.0-8.0) Urine Specific Golf 1.025 (1.000-1.030) Urine Protein Negative mg/dL (NEG-TRACE) Urine Glucose (UA) Negative mg/dL (NEG) Urine Ketones (Stick) Negative mg/dL (NEG) Urine Blood Negative (NEG) Urine Nitrite Negative (NEG) Urine Bilirubin Negative (NEG) Urine Urobilinogen Dipstick 0.2 mg/dL (0.2 mg/dL) Urine Leukocyte Esterase Negative (NEG) Urine RBC 0 /HPF (0-2) Urine WBC Occ /HPF (0-4) Urine Squamous Epithelial Cells Many /LPF Urine Bacteria Few /HPF (0-FEW) Urine Mucus Mod /LPF Urine Opiates Screen Pos (NEG) Urine Methadone Screen Neg (NEG) Urine Barbiturates Neg (NEG) Urine Phencyclidine Screen Neg (NEG) Urine Amphetamine/Methamphetamine Neg (NEG) Urine Benzodiazepines Screen Neg (NEG) Urine Cocaine Screen Neg (NEG) Urine Cannabinoids Screen Neg (NEG) Urine Ethyl Alcohol Neg (NEG) POC Urine HCG, Qualitative Hcg negative (Negative) Laboratory Tests 09/26/20 22:04 Laboratory Tests 09/26/20 22:04 Vital Signs: Vital Signs Date Time Temp Pulse Resp B/P (MAP) Pulse Ox O2 Delivery O2 Flow Rate FiO2 09/26/20 22:00 98.3 67 18 120/63 (82) 98 Room Air 98.3 EKG: EKG: Sinus rhythm, heart rate 60 bpm, normal axis, no ST elevation depression, no ectopy [] Heart Score: C/O Chest Pain: Yes HEART Score for Chest Pain: HEART Score for Chest Pain Response (Comments) Value History Slighlty/Non-Suspicious 0 ECG Normal 0 Age < 45 0 Risk Factors 1 or 2 Risk Factors 1 Total 1 Risk Factors: Risk Factors: DM, Current or recent (<one month) smoker, HTN, HLP, family history of CAD, obesity. Risk Scores: Score 0 - 3: 2.5% MACE over next 6 weeks - Discharge Home Score 4 - 6: 20.3% MACE over next 6 weeks - Admit for Clinical Observation Score 7 - 10: 72.7% MACE over next 6 weeks - Early Invasive Strategies Radiology/Procedures: Radiology/Procedures: EXAM: CTA OF THE CHEST, ABDOMEN AND PELVIS WITH CONTRAST. HISTORY: Chest/abdominal pain. Aneurysm. TECHNIQUE: Computed tomographic angiography of the chest, abdomen and pelvis was performed after the intravenous administration of Isovue 370. One or more of the following individualized dose reduction techniques were utilized for this examination: 1. Automated exposure control. 2. Adjustment of the mA and/or kV according to patient size. 3. Use of iterative reconstruction technique. COMPARISON: 01/23/2020. FINDINGS: Bone windows reveal no suspicious lesions. There is no aortic dissection or aneurysm a suggested filling defect within the ascending aorta is secondary to motion artifact. There is no aortic dissection or aneurysm. Maximum ascending aortic diameter is 3.3 cm. There is a common origin of the left common carotid and brachiocephalic arteries, a variant of normal. There are no pathologically enlarged mediastinal or axillary lymph nodes. Calcified mediastinal lymph nodes are likely secondary to old granulomatous disease. There is no pleural or pericardial effusion. The heart is not enlarged. An uncalcified 3 mm nodule in the left lower lobe on image 62 is likely benign. There is a calcified granuloma in the left upper lobe. There is mild scarring in the right middle lobe. The gallbladder is packed with stones. There are calcified granulomas in the spleen. The liver, pancreas, adrenal glands and kidneys are unremarkable. There are no pathologically enlarged lymph nodes. The appendix is not inflamed. There is no small bowel obstruction. Prominent right lower quadrant lymph nodes measure up to 12 x 10 mm and are likely reactive. There is no bowel wall thickening. IMPRESSION: 1. A suggested filling defect within the ascending aorta is simulated by motion artifact. No aortic dissection or aneurysm. 2. Cholelithiasis.[] Course & Med Decision Making: Course & Med Decision Making Pertinent Labs and Imaging studies reviewed. (See chart for details) Repeat troponin negative, CT unremarkable. Patient not returning in emergency department. Given potassium tablet for hypokalemia. [] Dragon Disclaimer: Dragon Disclaimer: This electronic medical record was generated, in whole or in part, using a voice recognition dictation system. Departure Departure Impression: Primary Impression: Chest pain Disposition: HOME / SELF CARE / HOMELESS Condition: STABLE Referrals: SUSIE GONZALEZ MD (PCP) Patient Instructions: Chest Pain (Nonspecific), Hypokalemia JESS REAL MD September 26, 2020 22:42
--- NOTE | 2020-09-26 22:44 | EKG ---
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
[2020-09-26 22:47] LABS: BASO # 0.1 x10^3/uL (0.0-0.2); BASO % 0 % (0-3); EOS # 0.4 x10^3/uL (0.0-0.7); EOS % 3 % (0-3); HEMATOCRIT 36.9 % (36.0-47.0); HEMOGLOBIN 12.6 g/dL (12.0-15.5); LYMPH # 4.1 x10^3/uL (1.0-4.8); LYMPH % 30 % (24-48); MEAN CORPUSCULAR HEMOGLOBIN 30 pg (25-35); MEAN CORPUSCULAR HGB CONC 34 g/dL (31-37); MEAN CORPUSCULAR VOLUME 89 fL (79-100); MONO % 7 % (0-9); NEUT % 59 % (31-73); PLATELET COUNT 483 x10^3/uL (140-400); RED BLOOD COUNT 4.17 x10^6/uL (3.50-5.40); RED CELL DISTRIBUTION WIDTH 15.2 % (11.5-14.5); WHITE BLOOD COUNT 13.5 x10^3/uL (4.0-11.0)
[2020-09-26 23:00] LABS: CALCIUM 8.9 mg/dL (8.5-10.1); CREATININE 1.4 mg/dL (0.6-1.0); GFR 50.4
[2020-09-26 23:07] LABS: ALBUMIN 4.2 g/dL (3.4-5.0); ALBUMIN/GLOBULIN RATIO 0.9 (1.0-1.7); MAGNESIUM 1.8 mg/dL (1.8-2.4); TOTAL BILIRUBIN 0.3 mg/dL (0.2-1.0); TOTAL PROTEIN 8.7 g/dL (6.4-8.2)
[2020-09-26] MEDS ORDERED: IOHEXOL 350 MG/ML 100 ML VIAL. IV ONE (23:15)
[2020-09-26] MEDS ORDERED: CONTRAST GIVEN. MC PRN (23:15)
[2020-09-26 23:48] LABS: BILIRUBIN,URINE NEGATIVE (NEG); CLARITY,URINE CLOUDY; COLOR,URINE YELLOW; NITRITE,URINE NEGATIVE (NEG); PH,URINE 5.5 (<5.0-8.0); PROTEIN,URINE NEGATIVE (NEG-TRACE); UROBILINOGEN,URINE 0.2 mg/dL (0.2 mg/dL)
[2020-09-26 23:55] LABS: BACTERIA,URINE FEW /HPF (0-FEW); RBC,URINE 0 /HPF (0-2); WBC,URINE OCC /HPF (0-4)
[2020-09-26 23:56] LABS: AMPHETAMINE/METHAMPHETAMINE NEG (NEG); BARBITURATES NEG (NEG); BENZODIAZEPINES NEG (NEG); CANNABINOIDS NEG (NEG); COCAINE NEG (NEG); METHADONE NEG (NEG); OPIATES POS (NEG); PHENCYCLIDINE NEG (NEG)
[2020-09-27] MEDS ORDERED: POTASSIUM CHLORIDE 20 MEQ TABLET.ER. PO ONE (00:15)
--- NOTE | 2020-09-27 00:26 | RAD ---
EXAM: CTA OF THE CHEST, ABDOMEN AND PELVIS WITH CONTRAST. HISTORY: Chest/abdominal pain. Aneurysm. TECHNIQUE: Computed tomographic angiography of the chest, abdomen and pelvis was performed after the intravenous administration of Isovue 370. One or more of the following individualized dose reduction techniques were utilized for this examination: 1. Automated exposure control. 2. Adjustment of the mA and/or kV according to patient size. 3. Use of iterative reconstruction technique. COMPARISON: 01/23/2020. FINDINGS: Bone windows reveal no suspicious lesions. There is no aortic dissection or aneurysm a suggested filling defect within the ascending aorta is se condary to motion artifact. There is no aortic dissection or aneurysm. Maximum ascending aortic diame ter is 3.3 cm. There is a common origin of the left common carotid and brachiocephalic arteries, a va riant of normal. There are no pathologically enlarged mediastinal or axillary lymph nodes. Calcified mediastinal lymph nodes are likely secondary to old granulomatous disease. There is no pleural or pericardial effusion . The heart is not enlarged. An uncalcified 3 mm nodule in the left lower lobe on image 62 is likely benign. There is a calcified granuloma in the left upper lobe. There is mild scarring in the right middle lobe. The gallbladder is packed with stones. There are calcified granulomas in the spleen. The liver, pancr eas, adrenal glands and kidneys are unremarkable. There are no pathologically enlarged lymph nodes. The appendix is not inflamed. There is no small bowel obstruction. Prominent right lower quadrant lym ph nodes measure up to 12 x 10 mm and are likely reactive. There is no bowel wall thickening. IMPRESSION: 1. A suggested filling defect within the ascending aorta is simulated by motion artifact. No aortic d issection or aneurysm. 2. Cholelithiasis. Electronically signed by: Fanta Main MD (09/27/2020 12:24 AM) [facility]
[2020-09-27 02:38] VITALS: BP 111/59
== END 2020-09-27 02:49 | disposition home or self-care (01) ==
LOC: ER 21:58
DX: R07.89 Other chest pain (principal); I10 Essential (primary) hypertension; F41.9 Anxiety disorder, unspecified; G43.909 Migraine, unspecified, not intractable, without status migrainosus; E78.00 Pure hypercholesterolemia, unspecified; F17.200 Nicotine dependence, unspecified, uncomplicated; Z88.0 Allergy status to penicillin
CPT/HCPCS: 36415; 71275; 74174; 80053; 80307; 81001; 81025; 83735; 83880; 84484; 85025; 85379; 93005; 99285; Q9967

== ENCOUNTER → 2020-11-05 | Outpatient (CLI) | payer MEDICAID ==
--- NOTE | 2020-11-05 17:36 | RAD ---
DATE: 11/05/2020 EXAM: DIGITAL SCREEN BILAT W/CAD HISTORY: Screening COMPARISON: None. Baseline exam. This study was interpreted with the benefit of Computerized Aided Detection (CAD). Breast Density: SCATTERED The breast parenchyma shows scattered fibroglandular densities. Breast parenchyma level B. FINDINGS: No mass, suspicious calcification, or architectural distortion in either breast. IMPRESSION: No evidence of malignancy. BI-RADS CATEGORY: 1 NEGATIVE RECOMMENDED FOLLOW-UP: 12M 12 MONTH FOLLOW-UP PQRS compliance statement: Patient information was entered into a reminder system with a target due date for the next mammogram. Mammography is a sensitive method for finding small breast cancers, but it does not detect them all and is not a substitute for careful clinical examination. A negative mammogram does not negate a clinically suspicious finding and should not result in delay in biopsying a clinically suspicious abnormality. "Our facility is accredited by the [employer] Mammography Program."
== END ==
LOC: MAMMO 09:35
PROVIDERS: ATTEND Family Medicine
DX: Z12.31 Encounter for screening mammogram for malignant neoplasm of breast (principal)
CPT/HCPCS: 77067